=== PATIENT | male | born 1940 | race Caucasian/White ===

== ENCOUNTER 2016-12-10 01:38 | Day surgery (SDC) | payer MEDICARE ==
[~2016-12-10] VITALS: Ht 180.3 cm; Wt 95.7 kg
[2016-12-10] VITALS (14 sets, daily range): BP systolic 117–157; BP diastolic 68–87; PULSE 57–61; RESP 12–18; O2SAT 95–100
[~2016-12-10 01:38] MED LIST: AMIO100T4 PO; ASPI-973 PO; CHOL10008 PO; ENAL10TA PO; FERR-83 PO; FURO40TA4 PO; ISOS60TA2 PO; LIP40 PO; METF500T4 PO; METO-272 PO; NITR0.4T SL; SPIR25TA PO; TERA1CAP3 PO; WARF2.5T82 PO
[2016-12-10] MEDS ORDERED: Propofol 10,000 mCg/mL 20 mL Inj ONE (01:39)
[2016-12-10] MEDS ORDERED: fentaNYL-PF 50 mCg/mL 2 mL Inj ONE (01:39)
[2016-12-10] MEDS ORDERED: Ketamine 10 mg/mL 20 mL Inj ONE (01:39)
[2016-12-10] MEDS ORDERED: 0.9% Sodium Chloride 1,000 ML IV PRN (09:59)
[2016-12-10 10:00] LABS: BASOPHILS % (AUTO) 0.6 % (0-3); EOSINOPHILS % (AUTO) 9.4 % (0-5); MONOCYTES % (AUTO) 10.7 % (4-12); Mean Corpuscular Volume 82.8 fL (81-100); NEUTROPHILS % (AUTO) 64.9 % (40-74); Platelet Count 282 bil/L (150-400)
[2016-12-10] MEDS ORDERED: Vancomycin Inj 1,000 MG in IV Premix 1 EACH IV ONE (10:00)
[2016-12-10 10:28] LABS: INR 1.47 ratio
--- NOTE | 2016-12-10 11:06 | NUR ---
Admitted as an outpatient for an upgraded generator and possible new lead placement. Patient currently has an old AICD with a single lead. Patient is here with his son, "Ruslan". Chronic atrial fibrillation rates in the 50's.
[2016-12-10] MEDS ORDERED: MULT1CAP33 PO (11:08)
[2016-12-10] MEDS ORDERED: 0.9% Sodium Chloride 250 ML ONE (11:10)
[2016-12-10] MEDS ORDERED: Water for Injection 50 ML IV ONE (11:10)
[2016-12-10] MEDS ORDERED: Vancomycin 1,000 mg Inj ONE (11:10)
[2016-12-10] MEDS ORDERED: Bupivacaine-MPF 0.5% 30 mL Inj ONE (11:10)
--- NOTE | 2016-12-10 11:19 | PCM.HPANE ---
Patient Data Surgeon Admitting Provider: Attending Provider:Anton Jonas MD Primary Care Physician:Sancho Byers MD Other Provider: Reason for Visit Ischemic Cardiomyopathy Ht/WT & BMI Height (Feet): 5 Height (Inches): 11.00 Weight (Kilograms): 96.100 Body Mass Index 29.66 Allergies Coded Allergies: No Known Allergies (Unverified , 12/10/16) Past Anesthesia History Anesthesia History: Denies:: Abnormal Airway, Anesthesia Reactions, Difficult Intubation, Fam Anesthesia Reaction, Fam Malignant Hypertherm, Malignant Hyperthermia Diabetes History Hx Diabetes?: Yes MRSA MRSA: No Medications Hypertension Medication: Yes Home Meds Incl Beta Jyothi: Yes Reported Medications Multivitamin (Multivitamins)1 Each Capsule1 Each PO 12/10/16 Warfarin Sodium 2.5 Mg Tablet2.5 Mg PO DAILY 30 Days Ref 0 12/09/16 Cholecalciferol (Vitamin D3) (Vitamin D3)1,000 Unit Tab.chew1,000 Unit PO 12/09/16 Terazosin 1 Mg Capsule1 Mg PO HS Ref 0 12/09/16 Nitroglycerin SL (Nitrostat)0.4 Mg Tab.subl0.4 Mg SL Q5MIN PRN For Chest Pain # 1 BOTTLE 12/09/16 Metoprolol Succinate ER 50 Mg Tab.er.24h50 Mg PO BID Ref 0 12/09/16 Metformin 500 Mg Vnwwpc992 Mg PO BID Ref 0 12/09/16 Isosorbide MN ER 60 Mg Tab.er.24h60 Mg PO DAILY 12/09/16 Ferrous Sulfate 325 Mg Mapzgv666 Mg PO DAILY 30 Days Ref 0 12/09/16 Furosemide 40 Mg Zcddhg98 Mg PO DAILY 12/09/16 Enalapril Maleate 10 Mg Qzvviy12 Mg PO BID Ref 0 12/09/16 Atorvastatin (Lipitor)40 Mg Kfzhgk13 Mg PO BID Ref 0 12/09/16 Aspirin 81 Mg Rcjykj75 Mg PO DAILY Ref 0 12/09/16 Amiodarone 100 Mg Tnmpbo265 Mg PO DAILY Ref 0 12/09/16 Discontinued Reported Medications Spironolactone (Aldactone)25 Mg Arjwfs61 Mg PO DAILY Ref 0 12/09/16 History History of ENT Problems?: No HEENT History: Denies:: Abnormal Airway Cataracts Difficult Intubation Dysphagia Glaucoma Hearing Problem Sinus Problem TMJ Denture Type: Full- Upper Partial- Lower Teeth Condition: Within Normal Limits Hx of Heart Problems?: Yes Cardiovascular History: Positive for:: Cardiac Surgery (CABG 1998 - AICD - 13 years ago) Congestive Heart Failure (Rogelio plerual effusions 3 thorencentesis this year) Edema (trace at ankles) Heart Murmur (per patient) Hypertension (Managed with medications) Irregular Heartbeat (chronic atrial fibrillation) Denies:: Chest Pain Peripheral Vascular Other Cardiac History: Ischemic cardiomyopathy EF 30% Hx of Respiratory Problem?: Yes Respiratory History: Positive for:: Chest Surgery Dyspnea (pleural effusiosn this year - EF is 20) Denies:: Asthma Pneumonia Tuberculosis Hx Neurologic Problems?: No Neurological History: Denies:: Alzheimer's Disease CVA Dementia Dizziness Headaches Multiple Sclerosis Parkinson's Disease Peripheral Neuropathy Seizures TIA Hx of GI Problems?: No Hx of Problems?: No HX of Peritoneal Dialysis: No Hx Musculoskeletal Problems?: No Musculoskeletal History: Positive for:: Back Injury Denies:: Joint Replacement Hx of Psycho/Social Problems?: No Hx Surgeries?: Yes (CABG - AICD) Hx Any Other Health Problems?: Yes Other History: Positive for:: Hospitalization Denies:: Cancer Thyroid Disease History Blood Transfusions: Positive for:: Accept Blood Products? Denies:: Blood Transfuse Reaction Blood Transfusions Hx Diabetes: Yes Hx Alcohol Use: NoHx Substance Use: NoHave You Smoked inLast 12 mo: No Stop/Bang SEFERINO Risk Assessment: High Risk, =/>3 Yes Risk Assessment Category Category 1A: Patient has history of documented sleep apnea, and HAS NOT received any narcotic, sedative or anesthesia administration during this stay. Category 1B: Patient has history of documented sleep apnea, and HAS received any narcotic , sedative or anesthesia administration during this stay Category 2: Patient has SUSPECTED Obstructive Sleep Apnea, and HAS received any narcotic , sedative or anesthesia administration during this stay. Category 3: Patient has SUSPECTED Obstructive Sleep Apnea and HAS NOT received narcotic, sedative or anesthesia administration during this stay. Category 4: Outpatient in Procedural Areas with known sleep apnea or who screen positive for High Risk via the STOP/BANG questionnaire. Exam Exam Vital Signs Vital Signs Date Time Temp Pulse Resp B/P Pulse Ox O2 Delivery O2 Flow Rate FiO2 12/10/16 10:48 36.8 57 12 148/76 95 Room Air General Appearance: Alert, Oriented X3, Cooperative, No Acute Distress HEENT/AIRWAY: MP 2 Lungs: Clear to Auscultation, Normal Air Movement Heart: Exam Unremarkable, Regular Rate/Rhythm, No Murmurs/Rubs/Gallops Meds/Labs/Diagnostics Labs Test 12/10/16 09:54 White Blood Count 7.0th/mm3 (3.8-10.1) Red Blood Count 4.12mil/mm3 (4.40-5.80) Hemoglobin 10.3g/dL (13.8-17.2) Hematocrit 34.1% (41.0-50.0) Mean Corpuscular Volume 82.8fL (81-100) Mean Corpuscular Hemoglobin 25.0pg (27.0-35.0) Mean Corpuscular Hemoglobin Concent 30.2% (32.0-37.0) Red Cell Distribution Width 19.4% (12.3-15.4) Platelet Count 282bil/L (150-400) Neutrophils (%) (Auto) 64.9% (40-74) Lymphocytes (%) (Auto) 14.1% (14-46) Monocytes (%) (Auto) 10.7% (4-12) Eosinophils (%) (Auto) 9.4% (0-5) Basophils (%) (Auto) 0.6% (0-3) Prothrombin Time 15.9sec (8.1-12.5) Prothromb Time International Ratio 1.47ratio Sodium Level 141mEq/L (134-144) Potassium Level 4.1mEq/L (3.5-5.2) Chloride Level 103mEq/L (97-108) Carbon Dioxide Level 25mmol/L (18-29) Blood Urea Nitrogen 33mg/dL (8-27) Creatinine 2.25mg/dL (0.76-1.27) Estimat Glomerular Filtration Rate 30mL/min (>59) Glucose Level 96mg/dL (60-99) Calcium Level 8.7mg/dL (8.5-10.1) Plan Impression Patient chart reviewed, patient interviewed and anesthestic plan with risks, benefits, and alternatives discussed, and informed consent obtained. NPO per Anesth. Guidelines: Yes ASA Physical Status: ASA3 Severe Disease Anesthetic Plan: GA, MAC Bene/Risks/Altern/Consents: Yes HP Complete Prior to Induction: Yes Jose Wilkinson MD Dec 10, 2016 11:19
[2016-12-10] MEDS ORDERED: Ondansetron 2 mg/mL 2 mL Inj IVPUSH PRN (11:20)
[2016-12-10] MEDS ORDERED: EPHEDrine Sulfate 50 mg/mL Inj IVPUSH PRN (11:20)
[2016-12-10] MEDS ORDERED: Atropine 0.4 mg/mL Inj IVPUSH PRN (11:20)
[2016-12-10] MEDS ORDERED: Phenylephrine 10,000 mCg/mL Inj IVPUSH PRN (11:20)
[2016-12-10] MEDS ORDERED: HYDROmorphone 1 mg/mL Inj IVPUSH PRN (11:20)
[2016-12-10] MEDS ORDERED: fentaNYL-PF 50 mCg/mL 2 mL Inj IVPUSH PRN (11:20)
[2016-12-10] MEDS ORDERED: Lactated Ringer's 1,000 ML IV SCH (11:20)
[2016-12-10] MEDS ORDERED: Labetalol 5 mg/mL 4 mL Inj IV PRN (11:20)
[2016-12-10] MEDS ORDERED: MetoCLOpramide 5 mg/mL 2 mL Inj IVPUSH PRN (11:20)
[2016-12-10] MEDS ORDERED: Lactated Ringer's 500 ML IV PRN (11:20)
[2016-12-10] MEDS ORDERED: Heparin 10,000 Unit/1,000 mL NS Premix IV ONE (12:01)
[2016-12-10] MEDS: 0.9% Sodium Chloride 1,000 ML IV SCH ×2 (13:44→23:44)
--- NOTE | 2016-12-10 14:30 | NUR ---
Returned from [employer] [employer] following an upgrade to a Bi-V pacer. 100% paced - pacer site is dry intact with no hematoma. Deep sedation with Anesthesia for today's procedure.
--- NOTE | 2016-12-10 14:44 | PCM.ANEP1 ---
Post Anesthesia PACU Phase 1 Assessment Vital Signs Vital Signs Date Time Temp Pulse Resp B/P Pulse Ox O2 Delivery O2 Flow Rate FiO2 12/10/16 14:30 60 14 135/69 100 Oxy Mask 10.00 12/10/16 14:25 60 14 135/69 100 Oxy Mask 10.00 12/10/16 14:20 36.2 60 14 123/72 100 Oxy Mask 10.00 12/10/16 10:48 36.8 57 12 148/76 95 Room Air Anesthetic Administered: MAC Level of Alertness: Awake, talking RODRIGUEZ's with Equal Strength: Yes Pain: No Nausea or Vomiting: No CV Function & Hydration Stable: Yes Airway Device: Oxygen Delivery: Simple Mask Lungs: Clear to Auscultation, Normal Air Movement PACU Phase 2 Assessment Complications: No Follow up Care: N/A Patient Instructions Provided: N/A Jose Wilkinson MD Dec 10, 2016 14:44
--- NOTE | 2016-12-10 15:04 | DRSVH ---
PROCEDURE: X-RAY CHEST ONE VIEW, PORTABLE ([id number]) INDICATIONS: For new leads placed TECHNIQUE: One view of the chest was acquired. COMPARISON: 10/13/2016 FINDINGS: Surgical changes and devices: Median sternotomy, most superior wire is broken. CABG. AICD.. Lungs and pleura: No pleural effusions or pneumothorax. Parenchymal densities at the lung bases, lef t greater than right, are still present but show interval improvement. Volume of left pleural effusio n is also diminished. Upper lobe pulmonary vessels are less prominent. Mediastinum: Mediastinal contours appear normal. Heart size is enlarged . Bones and chest wall: No suspicious bony lesions. Overlying soft tissues appear unremarkable. IMPRESSION: 1. Interval improvement in degree of pulmonary edema and bibasilar consolidation with diminished volu me of left pleural effusion since last study. Dictated by: Jett Patino M.D. on 12/10/2016 at 14:59 Approved by: Jett Patino M.D. on 12/10/2016 at 15:02
--- NOTE | 2016-12-10 15:55 | OP ---
[address] [address] OPERATIVE REPORT PATIENT: ALAN NULL : 1940 MR#: [id number] ADMIT: 12/10/2016 JOB ID: [id number] DATE OF SURGERY: 12/10/2016 PREOPERATIVE DIAGNOSIS(ES): 1. Severe ischemic cardiomyopathy with ejection fraction 35%. 2. Bifascicular block with QRS duration 150 msec. 3. Presence of single-chamber implantable cardioverter defibrillator. 4. [place] [employer] class III heart failure symptoms. 5. Coronary artery disease, status post bypass grafting. POSTOPERATIVE DIAGNOSIS(ES): 1. Severe ischemic cardiomyopathy with ejection fraction 35%. 2. Bifascicular block with QRS duration 150 msec. 3. Presence of single-chamber implantable cardioverter defibrillator. 4. [place] [employer] class III heart failure symptoms. 5. Coronary artery disease, status post bypass grafting. PROCEDURES PERFORMED: 1. Left upper extremity venogram. 2. Upgrade to a biventricular implantable cardioverter defibrillator system with placement of a left ventricular coronary sinus multilead implantable cardioverter defibrillator generator replacement and right atrial pacemaker lead. 3. Coronary sinus venogram. 4. Pocket revision. 5. Fluoroscopy. SURGEON: Anton Jonas MD, electrophysiology attending. IMPLANTED DEVICES: 1. [employer] pulse generator model GF5862-91G, serial #[id number]. 2. Coronary sinus lead [employer] 1458Q, 86 cm, serial #[id number]. 3. Right atrial lead [employer] 2088TC, 52 cm, serial #[id number]. 4. Explanted device Biotronik Lumax 740 VR-T pulse generator, serial #[id number]. 5. Chronic device Bi[employer]ronik DDD ICD, lead Linox Smart DX, serial #[id number]. ANESTHESIA: Monitored anesthesia care was undertaken for this case. INDICATION: The patient is a pleasant 76-year-old man with severe ischemic cardiomyopathy, bifascicular block and a single-chamber ICD in place. After discussion of the risks and benefits to upgrade to a biventricular ICD system, he opted to proceed. PROCEDURAL DESCRIPTION: Following informed signed consent, the patient was taken to the EP laboratory in a fasting, nonsedated state where he was prepped and draped in the usual sterile fashion. A left upper extremity venogram confirmed patency of the left subclavian vein. The left infraclavicular surgical scar was infiltrated with 40 cc of a 50/50 mixture of bupivacaine and lidocaine. Once adequate anesthesia had been achieved, a 4 cm incision was performed 2 cm below the left clavicle. Dissection was carried down to the capsule and the lead and generator freed loose of adhesions. The medial and inferior aspects of the capsule were then infiltrated with anesthetic, and the pocket was expanded medially and inferiorly to accommodate the larger footprint of the new device. Under venographic guidance, the left axillary vein was cannulated over the first rib twice with micropuncture needle to deployed two 0.035, 3-cm J guidewires. Over the first of these, a 9-Danish tear-away sheath was advanced once the guidewire was removed. A [employer] CS delivery sheath was delivered over a fixed curve CP decapolar catheter. The catheter was used to engage the coronary sinus. A contrast injection was performed and delineated a large posterolateral branch which was actually sub-selected with a CS delivery sheath. This was chosen as our branch of choice. The sheath was flushed and a quadripolar CS lead was brought to the field and advanced to the branch of choice over a Whisper wire. The lead was then connected to the external analyzer and demonstrated appropriately sensed R waves, impedance and capture threshold. The lead was checked to 10 V. There was diaphragmatic stimulation from the distal two bipoles but not from the middle two bipoles. This was deemed an acceptable position for the CS lead. The Whisper wire was pulled back and in its stead was placed a finishing stylet. The short 9-Danish sheath was split, and the long sheath was maintained for stability while I placed the atrial lead. We then paid attention to the atrial lead. Over the other previously deployed J guidewire, a 6-Danish tear-away sheath was advanced once the guidewire was removed. A bipolar pacing lead was advanced to the right atrial appendage. Extensive mapping was undertaken and all ultimately appendage positions did not show decent sensing or thresholds. I therefore placed the lead in the lower lateral right atrium. The lead was affixed in position using associated fixation screw. It was connected to the external analyzer and demonstrated appropriately sensed P-waves, impedance and capture. The lead was checked to 10 V, and there was no evidence of diaphragmatic stimulation. Finally, the long CS delivery sheath was split loose, maintaining the position of the CS leads. Once the position and redundancy of both leads had been confirmed in multiple fluoroscopic views, the leads were anchored to prepectoralis fascia using associated anchoring sleeves and 2-0 Ethibond sutures. The pocket was copiously irrigated with antibiotic solution. The atrial sensing port on the ICD lead with capped with a 1-0 Ti-Cron suture. The two new leads, as well as the one chronic lead, were then connected to the generator. The entire system was placed into the pocket and secured to the floor of the pocket using 1-0 Ti-Cron suture. The incision was then closed with running layers of absorbable suture. The wound was dressed with skin adhesive and a small dressing. At the end of procedure needle, sponge and instrument counts were all correct. COMPLICATIONS: None. ESTIMATED BLOOD LOSS: Negligible. DEVICE MEASURE DATA: 1. Right atrial lead greater than 5 mV, 480 ohms, 0.75 V at 0.5 msec. 2. RV lead 11.8 mV, 440 ohms, 0.75 V at 0.5 msec. 3. LV lead 680 ohms, 1 V at 0.5 msec (M2 to T4). FINAL PROGRAM PARAMETERS: 1. DDDR 60 to 130 beats per minute. 2. VT monitor zone at 150 beats per minute. 3. VT zone at 171 beats per minute with six rounds of ATP followed by shocks. 4. VF zone at 181 beats per minute with ATP during charge followed maximum output shocks. IMPRESSION: Successful upgrade to a biventricular implantable cardioverter defibrillator system. PLAN: 1. Stat portable chest x-ray. 2. PA and lateral chest x-ray in the morning. 3. Device . 4. IV vancomycin through tomorrow. 5. Doxycycline x7 days starting tomorrow. 6. Wound check in one week. ATTENDING STATEMENT: Anton Jonas MD, electrophysiology attending, was present for and supervised/performed all aspects of this procedure.
--- NOTE | 2016-12-10 16:53 | NUR ---
Recovery completed post Bi-V/ICD upgrade. Biggest complaint is a sore throat when he swallows from anesthesia, but patient is swallowing juice/ ice/pudding without difficulty. 100% paced - no pain currently from generator insertion. Transfer report given to RN for room 3027.
--- NOTE | 2016-12-10 17:57 | NUR ---
Arrived from [facility] Pt arrived from [facility] AOX3. Left arm in sling. Pt aware of pacer precautions. Denies pain at this time. Only reports sore throat. Ice chips for relief. Lungs sounds course. Encouraged cough and deep breathing. Care ongoing. Tele AV paced 60.
[2016-12-11 00:25] VITALS: BP 144/74; PULSE 60; RESP 18; O2SAT 97
[2016-12-11 05:34] VITALS: BP 148/81; PULSE 60; RESP 18; O2SAT 95
[2016-12-11 07:07] VITALS: PULSE 60
[2016-12-11] MEDS ORDERED: Isosorbide Mononitrate 60 mg ER24 Tablet PO SCH (07:30)
[2016-12-11] MEDS: 0.9% Sodium Chloride 1,000 ML IV SCH (07:42)
--- NOTE | 2016-12-11 08:40 | PCM.DIMED ---
Discharge Instructions Date of Service Dec 11, 2016 Dates of Hospitalization Discharge Diagnosis Discharge Diagnosis Ischemic Cardiomyopathy Ventricular Tachycardia Bifascicular Block Diet Discharge Diet: Low fat, Low Sodium, Heart Healthy Activity Discharge Activity: Other (Do not extend left elbow high above shoulder for one month. Do not lift, push or pull more than 10 lbs with the left arm for one month.) Call your provider Call your provider for: Fever or Chills, Bleeding, Excessive diarrhea Patient Instructions Follow-up in: 1 week Mid-level Provider (F9): Hank Trotter PA-C Follow-up with Mid-level in: 6 weeks Hank Trotter PA-C Dec 11, 2016 08:40
[2016-12-11] MEDS ORDERED: CEPH500C PO (08:56)
--- NOTE | 2016-12-11 09:42 | DIS ---
[address] [address] DISCHARGE SUMMARY PATIENT: ALAN NULL : 1940 MR#: [id number] ADMIT: 12/10/2016 JOB ID: [id number] DIS: ADMISSION DATE: 12/10/2016 DISCHARGE DATE: 12/11/2016 REASON FOR ADMISSION: Upgrade of defibrillator to a biventricular pacing defibrillator. CHIEF COMPLAINT: Exertional dyspnea and fatigue. BRIEF HISTORY: The patient is a pleasant 76-year-old man known to have ischemic heart disease and is status post bypass grafting. He has a severe ischemic cardiomyopathy with an LV ejection fraction of 30% to 35%. He also has first degree AV block and bifascicular block with a QRS duration of 150 msec. Prior to admission he had a single-chamber Biotronik ICD in place. Due to continued heart failure symptoms he was referred to Dr. Jonas for consideration of upgrading the system to a cardiac resynchronization therapy device. COURSE IN HOSPITAL: The patient was admitted to the [facility] and taken to the slab grinder, where he was placed under general anesthesia by the anesthesiologist. He then had the ICD system upgraded by the addition of an atrial pacing lead and LV pacing lead to a biventricular system. This was accomplished without incident and afterward he was wakened from anesthesia and taken back to the [facility]. From there he was transferred up to the [facility] for overnight observation. In the morning he was feeling well and having no pain. He was ambulatory without difficulty. The ICD site is closed and dry and there is no hematoma. Chest x-ray shows good lead positions and no pneumothorax. Device evaluation shows good capture and sensing thresholds for all three leads. He felt well for discharge home and had no complaints of dyspnea, lightheadedness, chest pain, or fatigue. DISPOSITION: The patient was discharged home in good condition with a followup appointment at the [facility] Cardiology office in one week. He was instructed not to extend his left elbow well above his shoulder for one month, and not to lift push or pull more than 10 pounds with the left arm for one month. He was asked not to take metformin for two days due to the contrast dye used at the procedure. He will take medications otherwise as prescribed and follow his heart healthy, low-sodium, low-fat diet. DISCHARGE MEDICATIONS: 1. Cephalexin 500 mg b.i.d. 2. Amiodarone 100 mg daily. 3. Aspirin 81 mg daily. 4. Atorvastatin 20 mg b.i.d. 5. Vitamin D3 1000 units daily. 6. Enalapril 20 mg b.i.d. 7. Ferrous sulfate 325 mg daily. 8. Furosemide 60 mg daily. 9. Isosorbide mononitrate 60 mg daily. 10. Metformin 500 mg tablet, 250 mg b.i.d. 11. Metoprolol succinate 50 mg b.i.d. 12. Multivitamin one daily. 13. Nitroglycerin sublingual 0.4 mg tablets p.r.n. chest pain. 14. Terazosyn 1 mg at bedtime. 15. Warfarin 2.5 mg daily. FINAL DIAGNOSES: 1. Ischemic cardiomyopathy. 2. Ventricular tachycardia. 3. Bifascicular block. 4. History of chronic systolic heart failure symptoms.
--- NOTE | 2016-12-11 09:43 | DRSVH ---
PROCEDURE: X-RAY CHEST, TWO VIEWS ([id number]) INDICATIONS: For new lead placement TECHNIQUE: 2 views of the chest were acquired. COMPARISON: [facility], CR, CHEST 2 VIEW, 09/15/2016, 13:07. [facility], CR, XR [address] 1VW (PORTABLE), 12/10/2016, 14:30. FINDINGS: Surgical changes and devices: Pacemaker and sternal wires including fractured superior sternal wire a re unchanged. Lungs and pleura: There is persistent increased opacity within the left base and likely effusion with out interval change. Appearance of increased opacity within the right base has improved. Mediastinum: Mediastinal contours are normal. Heart size is normal. Bones and chest wall: No suspicious bony abnormalities. Soft tissues appear unremarkable. IMPRESSION: Unchanged appearance of left basilar opacity and likely effusion, with continued interval improvement of previous right basilar opacity. Dictated by: Keke Rushing M.D. on 12/11/2016 at 9:39 Approved by: Keke Rushing M.D. on 12/11/2016 at 9:41
--- NOTE | 2016-12-11 09:51 | NUR ---
Discharge Patient given discharge orders. Patient given discharge instructions. Patient given medication list and written times of when due next. Patient reminded of prescription faxed to pharmacy. Patient IVX2 removed fully intact and asymptomatic. Patient given follow up information. Patient given pacemaker information.
== END 2016-12-11 10:21 | disposition home or self-care (01) ==
LOC: SOUO 01:38 → MPC 16:40 → SOUO 12-11 10:21
PROVIDERS: ATTEND Internal Medicine Cardiovascular Disease
DX: I25.5 Ischemic cardiomyopathy (principal); Z00.6 Encounter for examination for normal comparison and control in clinical research program; I45.2 Bifascicular block; I25.10 Atherosclerotic heart disease of native coronary artery without angina pectoris; I48.0 Paroxysmal atrial fibrillation; I47.2 Ventricular tachycardia; I50.22 Chronic systolic (congestive) heart failure; I44.0 Atrioventricular block, first degree; Z95.1 Presence of aortocoronary bypass graft; Z79.899 Other long term (current) drug therapy; Z79.82 Long term (current) use of aspirin; Z79.84 Long term (current) use of oral hypoglycemic drugs; Z79.01 Long term (current) use of anticoagulants; Z95.810 Presence of automatic (implantable) cardiac defibrillator
CPT/HCPCS: 33225; 33241; 33249; 36415; 71010; 71020; 80048; 85025; 85610; 93005; 99152; 99153; C1769; C1882; C1892; C1898; C1900; J1644; J2250; J3010; J3370; J7050; Q9967